=== PATIENT | male | born 1960 | race Caucasian/White ===

== ENCOUNTER → 2017-02-13 | Outpatient (CLI) | payer OTHER | LOC: FIMAGING 07:23 | PROVIDERS: ATTEND Internal Medicine | DX: R10.12 Left upper quadrant pain (principal); R63.5 Abnormal weight gain; K62.1 Rectal polyp; K76.0 Fatty (change of) liver, not elsewhere classified; Z90.49 Acquired absence of other specified parts of digestive tract ==